=== PATIENT | male | born 1955 | race African-American/Black ===

== ENCOUNTER 2018-07-07 11:37 | Emergency (ER) | payer MEDICAID ==
[~2018-07-07] VITALS: Ht 167.6 cm; Wt 80.0 kg
[2018-07-07] MEDS ORDERED: KETOROLAC 30MG/ML VIAL IM ONE (16:30)
[2018-07-07 17:33] VITALS: BP 132/78
== END 2018-07-07 17:39 | disposition home or self-care (01) ==
LOC: ER 11:37
DX: R51 Headache (principal); R05 Cough; F17.200 Nicotine dependence, unspecified, uncomplicated
CPT/HCPCS: 72040; 96372; 99283; J1885